=== PATIENT | male | born 1965 | race Two or more races ===

== ENCOUNTER 2017-08-01 09:57 | Emergency (ER) | payer OTHER ==
[~2017-08-01] VITALS: Ht 172.7 cm; Wt 68.0 kg
[2017-08-01 10:02] VITALS: BP 118/53
[2017-08-01] MEDS ORDERED: Mylanta II UD 30ml ORAL ONE (10:15)
[2017-08-01] MEDS ORDERED: Dicyclomine HCl 10mg/5ml oral soln ORAL ONE (10:15)
[2017-08-01] MEDS ORDERED: Lidocaine 2% Visc 15ml soln ORAL ONE (10:15)
[2017-08-01] MEDS ORDERED: Morphine Sulfate 4mg/ml Inj IVP ONE (10:15)
[2017-08-01 10:28] LABS: HEMATOCRIT 46.6 % (42.0-52.0); HEMOGLOBIN 15.9 G/DL (14.2-18.0); MEAN CORPUSCULAR VOLUME 93 FL (80-99); PLATELET COUNT 292 K/UL (150-450); RED BLOOD COUNT 4.99 M/UL (4.70-6.10); RED CELL DISTRIBUTION WIDTH 11.4 % (11.6-14.8); WHITE BLOOD COUNT 16.3 K/UL (4.8-10.8)
[2017-08-01 11:11] LABS: ALANINE AMINOTRANSFERASE 30 U/L (12-78); ALBUMIN 4.8 G/DL (3.4-5.0); ALBUMIN/GLOBULIN RATIO 1.3 (1.0-2.7); ALKALINE PHOSPHATASE 82 U/L (46-116); ANION GAP 16 mmol/L (5-15); ASPARTATE AMINO TRANSFERASE 32 U/L (15-37); BILIRUBIN,TOTAL 0.6 MG/DL (0.2-1.0); BLOOD UREA NITROGEN 19 mg/dL (7-18); CARBON DIOXIDE 26 MMOL/L (21-32); CHLORIDE 99 MMOL/L (98-107); CKMB 1.1 NG/ML (0.0-3.6); CREATINE KINASE 88 U/L (26-308); POTASSIUM 4.1 MMOL/L (3.5-5.1); SODIUM 141 MMOL/L (136-145)
--- NOTE | 2017-08-01 12:14 | Diagnostic Imaging Report ---
Indication: Cough Technique: One view of the chest Comparison: none Findings: Lungs and pleural spaces are clear. Heart size is normal. Impression: Negative
--- NOTE | 2017-08-01 12:14 | Diagnostic Imaging Report ---
Indication: Cough Technique: One view of the chest Comparison: none Findings: Lungs and pleural spaces are clear. Heart size is normal. Impression: Negative
--- NOTE | 2017-08-01 12:14 | Diagnostic Imaging Report ---
Indication: Cough Technique: One view of the chest Comparison: none Findings: Lungs and pleural spaces are clear. Heart size is normal. Impression: Negative
[2017-08-01 12:18] VITALS: BP 140/82
--- NOTE | 2017-08-01 12:56 | Diagnostic Imaging Report ---
Clinical Indication: Abdominal pain and vomiting Technique: No oral contrast utilized, per emergency room physician request IV administration nonionic contrast. Venous phase spiral acquisition been obtained through the abdomen and pelvis. Multiplanar reconstructions were generated. Total dose length product 467 mGycm. CTDIvol(s) 9 mGy. Dose reduction achieved using automated exposure control Comparison: None Findings: Lack of enteric contrast limits assessment of the GI tract. The appendix is normal. There is no evidence of diverticulosis or diverticulitis. There is very questionable mild wall thickening of the colon in the region of the hepatic flexure as well as equivocal minimal stranding of the pericolonic fat. There is mild distal esophageal wall thickening. The stomach and duodenum are unremarkable. No small bowel distention. No free or loculated intraperitoneal air or fluid. The liver demonstrates a subcentimeter low-attenuation lesion in segment 8 which is too small to characterize. The gallbladder, bile ducts are unremarkable. The pancreas is markedly atrophic. The spleen and adrenals are unremarkable. The kidneys demonstrate bilateral subcentimeter low-attenuation lesions which are too small to characterize. No calculi, hydronephrosis, or hydroureter. No mesenteric or retroperitoneal mass or adenopathy. No pelvic mass or adenopathy. The bladder is somewhat distended, somewhat thick walled. The prostate is enlarged, measures 5 cm transverse by 3.8 cm AP by 4 cm craniocaudad The included lung bases demonstrate some thickening of the inferior left major fissure, 5 mm subpleural opacity in the right costophrenic sulcus. The bones are unremarkable. Impression:. Limited assessment of the GI tract, given the absence of enteric contrast administration Equivocal mild colonic wall thickening in the region of the hepatic flexure, if real could indicate mild colitis changes. Mild distal esophageal wall thickening, could indicate esophagitis Somewhat enlarged prostate Atrophic pancreas Mild bladder wall thickening, could indicate cystitis or be on the basis of chronic bladder outlet obstruction Right basilar subpleural pulmonary opacity, most likely an area of postinflammatory change Bilateral renal and right hepatic low-attenuation lesions, most likely benign simple cysts. No further followup necessary. The CT scanner at [facility] is accredited by the [employer] and the scans are performed using protocols designed to limit radiation exposure to as low as reasonably achievable to attain images of sufficient resolution adequate for diagnostic evaluation.
[2017-08-01] MEDS ORDERED: BENAZEPRIL HCL10 MG ORAL (14:01)
[2017-08-01] MEDS ORDERED: ATORVASTATIN CA40 MG ORAL (14:01)
[2017-08-01] MEDS ORDERED: ASPIR 8181 MG ORAL (14:01)
[2017-08-01] MEDS ORDERED: BASAGLAR K100 UNIT/1 SQ (14:01)
[2017-08-01] MEDS ORDERED: HUMALOG100 UNIT/3 SUBQ (14:01)
--- NOTE | 2017-08-01 14:21 | Emergency Room Report ---
History of Present Illness General Chief Complaint: Abdominal Pain Source: Patient Present Illness HPI 52-year-old male presents ED with abdominal pain. Patient brought in by EMS. States isn't having abdominal pain with vomiting and diarrhea x1 day. Notes blood in stool. States pain is sharp, 10 out of 10, epigastric, nonradiating. Patient states he feels chills. Denies fever. Denies sick contacts or recent travel. Denies recent antibiotic use. No other aggravating relieving factors. Denies any other associated symptoms Allergies: Coded Allergies: No Known Allergies (Unverified , 08/01/17) Patient History Past Medical History: none, DM, HTN Past Surgical History: none Pertinent Family History: none Social History: Denies: smoking, alcohol use, drug use Immunizations: UTD Reviewed Nursing Documentation: PMH: Agreed, PSxH: Agreed Nursing Documentation-PMH Hx Cardiac Problems: Yes - high cholesterol Hx Hypertension: Yes Hx Diabetes: Yes Review of Systems All Other Systems: negative except mentioned in HPI Physical Exam Vital Signs Date Time Temp Pulse Resp B/P (MAP) Pulse Ox O2 Delivery O2 Flow Rate FiO2 08/01/17 09:48 78 18 128/76 97 Room Air 08/01/17 10:02 98.1 Sp02 EP Interpretation: reviewed, normal General Appearance: alert, GCS 15, non-toxic, mild distress, thin Head: normocephalic, atraumatic Eyes: bilateral eye normal inspection, bilateral eye PERRL ENT: hearing grossly normal, normal pharynx, no angioedema, normal voice Neck: full range of motion, supple/symm/no masses Respiratory: chest non-tender, lungs clear, normal breath sounds, speaking full sentences Cardiovascular #1: regular rate, rhythm, no edema Cardiovascular #2: 2+ carotid (R), 2+ carotid (L), 2+ radial (R), 2+ radial (L) , 2+ dorsalis pedis (R), 2+ dorsalis pedis (L) Gastrointestinal: normal bowel sounds, soft, non-distended, guarding, tenderness Rectal: deferred Genitourinary: normal inspection, no CVA tenderness Musculoskeletal: back normal, gait/station normal, normal range of motion, non- tender Neurologic: alert, oriented x3, responsive, motor strength/tone normal, sensory intact, speech normal Psychiatric: judgement/insight normal, memory normal, mood/affect normal, no suicidal/homicidal ideation Reflexes: 3+ bicep (R), 3+ bicep (L), 3+ tricep (R), 3+ tricep (L), 3+ knee (R) , 3+ knee (L) Skin: normal color, no rash, warm/dry, well hydrated Lymphatic: no adenopathy Medical Decision Making Diagnostic Impression: Primary Impression: Colitis Additional Impression: Intractable vomiting Qualified Codes: R11.2 - Nausea with vomiting, unspecified ER Course Hospital Course 52-year-old male presents to ED with abd pain, vomiting and diarrhea Differential diagnoses include: BPH, cystitis, pyelonephritis, kidney stone Clinical course 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 After initial history and physical I ordered labs, IV fluids, UA, pain medication and CT scan Labs - noted leukocytosis, Hb/Hct stable. electrolytes ok CT abdomen and pelvis - colitis EKG - NSR, no acute ischemic changes interpreted by me Patient continues to have pain, vomiting despite pain medication IV fluids and anti-emetics. Patient will require admission. Given Cipro and Flagyl in ED because of insurance patient will be transferred I feel this is a highly complex case requiring extensive working including EKG/ Rhythm strip, Xray/CT/US, Blood/urine lab work, repeat exams while in ED, and administration of strong opiates/narcotics for pain control, admission to hospital or close patient follow up. Diagnosis - colitis, intractable vomiting Transferred in serious condition Labs Test 08/01/17 10:00 White Blood Count 16.3 K/UL (4.8-10.8) Red Blood Count 4.99 M/UL (4.70-6.10) Hemoglobin 15.9 G/DL (14.2-18.0) Hematocrit 46.6 % (42.0-52.0) Mean Corpuscular Volume 93 FL (80-99) Mean Corpuscular Hemoglobin 31.9 PG (27.0-31.0) Mean Corpuscular Hemoglobin Concent 34.1 G/DL (32.0-36.0) Red Cell Distribution Width 11.4 % (11.6-14.8) Platelet Count 292 K/UL (150-450) Mean Platelet Volume 6.8 FL (6.5-10.1) Neutrophils (%) (Auto) % (45.0-75.0) Lymphocytes (%) (Auto) % (20.0-45.0) Monocytes (%) (Auto) % (1.0-10.0) Eosinophils (%) (Auto) % (0.0-3.0) Basophils (%) (Auto) % (0.0-2.0) Differential Total Cells Counted 100 Neutrophils % (Manual) 93 % (45-75) Lymphocytes % (Manual) 3 % (20-45) Monocytes % (Manual) 4 % (1-10) Eosinophils % (Manual) 0 % (0-3) Basophils % (Manual) 0 % (0-2) Band Neutrophils 0 % (0-8) Platelet Estimate Adequate Platelet Morphology Normal Red Blood Cell Morphology Normal Sodium Level 141 MMOL/L (136-145) Potassium Level 4.1 MMOL/L (3.5-5.1) Chloride Level 99 MMOL/L (98-107) Carbon Dioxide Level 26 MMOL/L (21-32) Anion Gap 16 mmol/L (5-15) Blood Urea Nitrogen 19 mg/dL (7-18) Creatinine 1.0 MG/DL (0.55-1.30) Estimat Glomerular Filtration Rate > 60 mL/min (>60) Glucose Level 222 MG/DL (74-106) Calcium Level 10.0 MG/DL (8.5-10.1) Total Bilirubin 0.6 MG/DL (0.2-1.0) Aspartate Amino Transf (AST/SGOT) 32 U/L (15-37) Alanine Aminotransferase (ALT/SGPT) 30 U/L (12-78) Alkaline Phosphatase 82 U/L (46-116) Total Creatine Kinase 88 U/L (26-308) Creatine Kinase MB 1.1 NG/ML (0.0-3.6) Creatine Kinase MB Relative Index 1.2 Troponin I 0.000 ng/mL (0.000-0.056) Total Protein 8.4 G/DL (6.4-8.2) Albumin 4.8 G/DL (3.4-5.0) Globulin 3.6 g/dL Albumin/Globulin Ratio 1.3 (1.0-2.7) Lipase 52 U/L (73-393) EKG Diagnostic Results Rate: normal Rhythm: NSR ST Segments: no acute changes ASA given to the pt in ED: No Rhythm Strip Diag. Results EP Interpretation: yes Rhythm: NSR, no PVC's, no ectopy Chest X-Ray Diagnostic Results Chest X-Ray Diagnostic Results : Chest X-Ray Ordered: Yes # of Views/Limited/Complete: 1 View Indication: Chest Pain EP Interpretation: Yes Interpretation: no consolidation, no effusion, no pneumothorax, no acute cardiopulmonary disease Impression: No acute disease Electronically Signed by: Electronically signed by Philip Beebe MD CT/MRI/US Diagnostic Results CT/MRI/US Diagnostic Results : Imaging Test Ordered: CT A/P Impression colitis Last Vital Signs Date Time Temp Pulse Resp B/P (MAP) Pulse Ox O2 Delivery O2 Flow Rate FiO2 08/01/17 12:18 100.2 89 25 140/82 99 Room Air Status: improved Disposition: XFER [facility] Condition: Serious Referrals: [facility],REFERRING (PCP) PHILIP BEEBE M.D. Aug 01, 2017 14:21
[2017-08-01 14:49] VITALS: BP 132/71
[2017-08-01 15:23] VITALS: BP 132/71
== END 2017-08-01 15:26 | disposition short-term general hospital (02) ==
LOC: EDBD 09:57 → EMR 10:52
DX: K52.9 Noninfective gastroenteritis and colitis, unspecified (principal); I10 Essential (primary) hypertension; E11.9 Type 2 diabetes mellitus without complications; E78.00 Pure hypercholesterolemia, unspecified
CPT/HCPCS: 36415; 71010; 74177; 80053; 82550; 82553; 83690; 84484; 85007; 85025; 93005; 96361; 96365; 96366; 96375; 96376; 99285; J0744; J2270; J2405; Q9967; S0028